=== PATIENT | female | born 1960 | race African-American/Black ===

== ENCOUNTER 2023-10-20 15:12 | Observation (INO) | payer OTHER, BC ==
[2023-10-20 15:26] VITALS: BMI 30.7
[2023-10-20] MEDS: ALBUTEROL SO4 2.5/IPRATROPIUM 0.5 INH SOL 3 ML VIAL.NEB. NEB ONE (16:00)
[2023-10-20] MEDS ORDERED: ALBUTEROL SO4 2.5/IPRATROPIUM 0.5 INH SOL 3 ML VIAL.NEB. NEB ONE (16:17)
[2023-10-20 16:57] LABS: BASO % 0.8 % (0-2.0); EOS % 8.5 % (0-4.5); HEMATOCRIT 35.7 % (32.4-45.2); HEMOGLOBIN 11.8 GM/dL (10.7-15.3); LYMPH % 29.2 % (8-40); MCHC 32.9 g/dl (32.0-36.0); MEAN CELL VOLUME 81.9 fl (80-96); MEAN PLT VOLUME 7.8 fl (7.5-11.1); MONO % 12.3 % (3.8-10.2); NEUT % 49.2 % (42.8-82.8); PLATELET COUNT 231 10^3/uL (134-434); RBC 4.36 M/mm3 (3.60-5.2); RDW 15.7 % (11.6-15.6); WHITE BLOOD COUNT 3.7 K/mm3 (4.0-10.0)
[2023-10-20 17:02] LABS: INR 1.1 (0.83-1.09); PROTHROMBIN TIME (PATIENT) 12.7 SEC (9.7-13.0)
[2023-10-20 17:05] LABS: ACTIVATED PTT 27.7 SECONDS (25.2-36.5)
[2023-10-20 17:12] LABS: POTASSIUM 3.9 mmol/L (3.5-5.1)
[2023-10-20 17:14] LABS: CALCIUM 9.2 mg/dL (8.5-10.1)
[2023-10-20 17:15] LABS: ALBUMIN 3.4 g/dl (3.4-5.0); MAGNESIUM 2.3 mg/dL (1.8-2.4)
[2023-10-20 17:18] LABS: CREATININE 0.8 mg/dL (0.55-1.3)
[2023-10-20 17:19] LABS: BILIRUBIN,TOTAL 0.5 mg/dL (0.2-1); TOT PROT 7.7 g/dl (6.4-8.2)
[2023-10-20 17:23] LABS: N-TERMINAL BNP 136.8 pg/ml (5-125)
[2023-10-20] MEDS ORDERED: methylPREDNISolone NA SUCC 125 MG/2 ML VIAL ONE (17:37)
[2023-10-20] MEDS: methylPREDNISolone NA SUCC 125 MG/2 ML VIAL IVPUSH ONE (17:43)
[2023-10-20 18:14] LABS: POTASSIUM 3.1 mmol/L (3.5-5.1)
[2023-10-20 18:15] LABS: BLOOD UREA NITROGEN 10.2 mg/dL (7-18); CALCIUM 8.9 mg/dL (8.5-10.1); MAGNESIUM 2.2 mg/dL (1.8-2.4)
[2023-10-20 18:19] LABS: CREATININE 0.7 mg/dL (0.55-1.3)
[2023-10-20] MEDS ORDERED: MAGNESIUM SULFATE IN WATER 2 GM/50 ML IVPB IVPB ONE (22:31)
[2023-10-20] MEDS: MAGNESIUM SULFATE IN WATER 2 GM/50 ML IVPB IVPB ONE (22:36)
[2023-10-20] MEDS ORDERED: guaiFENesin/CODEINE 10 ML UNIT-DOSE CUPS ONE (23:53)
[2023-10-21] MEDS: guaiFENesin 200 MG/10 ML 10 ML UNIT-DOSE CUPS PO ONE
[2023-10-21] MEDS ORDERED: ALBUTEROL SO4 HFA INHALER IH PRN (03:37)
[2023-10-21] MEDS: POTASSIUM CHLORIDE ORAL LIQUID 20 MEQ/15 ML PO ONE (04:09)
[2023-10-21] MEDS: ALBUTEROL SO4 2.5/IPRATROPIUM 0.5 INH SOL 3 ML VIAL.NEB. NEB SCH (05:27)
[2023-10-21 08:37] LABS: POTASSIUM 3.9 mmol/L (3.5-5.1)
[2023-10-21 08:38] LABS: BASO % 0.1 % (0-2.0); HEMATOCRIT 36.1 % (32.4-45.2); HEMOGLOBIN 12.2 GM/dL (10.7-15.3); LYMPH % 22.4 % (8-40); MCH 27.5 pg (25.7-33.7); MCHC 33.7 g/dl (32.0-36.0); MEAN CELL VOLUME 81.6 fl (80-96); MONO % 4.2 % (3.8-10.2); NEUT % 73.3 % (42.8-82.8); PLATELET COUNT 250 10^3/uL (134-434); RBC 4.43 M/mm3 (3.60-5.2); RDW 15.9 % (11.6-15.6); WHITE BLOOD COUNT 3.3 K/mm3 (4.0-10.0)
[2023-10-21 08:45] LABS: CALCIUM 9.3 mg/dL (8.5-10.1)
[2023-10-21 08:46] LABS: ALBUMIN 3.4 g/dl (3.4-5.0); BLOOD UREA NITROGEN 10.9 mg/dL (7-18); MAGNESIUM 2.4 mg/dL (1.8-2.4)
[2023-10-21 08:48] LABS: PHOSPHOROUS 2.8 mg/dL (2.5-4.9)
[2023-10-21 08:49] LABS: CREATININE 0.7 mg/dL (0.55-1.3)
[2023-10-21 08:50] LABS: BILIRUBIN,TOTAL 0.5 mg/dL (0.2-1); TOT PROT 7.7 g/dl (6.4-8.2)
[2023-10-21 08:51] VITALS: RESP 19; TEMP 98.7
[2023-10-21] MEDS: predniSONE 20 MG TABLET (UD) PO SCH (09:36)
[2023-10-21] MEDS: ASPIRIN COATED 81 MG TABLET.EC PO SCH (09:36)
[2023-10-21] MEDS: ACETAMINOPHEN 325 MG TABLET (FP) PO PRN (11:17)
[2023-10-21] MEDS: LOSARTAN POTASSIUM 50 MG TABLET PO SCH (11:18)
[2023-10-21] MEDS: NIFEdipine E.R. 30 MG TABLET PO SCH (13:45)
[2023-10-21 14:15] VITALS: BP 140/85; PULSE 79
[2023-10-21] MEDS ORDERED: ATORVASTATIN CA 10 MG TABLET (FP) PO SCH (22:00)
== END 2023-10-21 15:13 | disposition home or self-care (01) ==
LOC: JER 15:12 → UNDOADMOB 22:01 → JERBED 22:01 → INTOOBSV 22:18 → OBSVTOIN 22:18 → J5S 10-21 00:37 → JERBED 10-21 00:37 → J5S 10-21 07:53 → JERBED 10-21 07:53
PROVIDERS: ADMIT Internal Medicine
PROC: 3E0F7GC Introduction of Other Therapeutic Substance into Respiratory Tract, Via Natural or Artificial Opening (ICD-10-PCS; principal; 2023-10-21)
PROC: 3E033GC Introduction of Other Therapeutic Substance into Peripheral Vein, Percutaneous Approach (ICD-10-PCS; 2023-10-21)
DX: J45.909 Unspecified asthma, uncomplicated (principal); M19.90 Unspecified osteoarthritis, unspecified site; E87.5 Hyperkalemia; R74.01 Elevation of levels of liver transaminase levels; I10 Essential (primary) hypertension; E78.5 Hyperlipidemia, unspecified; Z86.711 Personal history of pulmonary embolism; Z88.0 Allergy status to penicillin
CPT/HCPCS: 0241U-QW; 36415; 71045-TC-FY; 80048; 80053; 83735; 83880; 84100; 84484; 85025; 85610; 85730; 93005; 93010; 93306-TC; 94150; 94640; 96365; 96375; 99285-25; G0378

== ENCOUNTER 2024-02-12 09:00 | Emergency (ER) | payer OTHER, BC ==
[2024-02-12 09:09] VITALS: TEMP 97.6; BMI 30.3
[2024-02-12 11:48] LABS: BASO % 0.8 % (0-2.0); EOS % 3.7 % (0-4.5); HEMATOCRIT 35.5 % (32.4-45.2); HEMOGLOBIN 11.9 GM/dL (10.7-15.3); LYMPH % 32.1 % (8-40); MCH 27.7 pg (25.7-33.7); MCHC 33.6 g/dl (32.0-36.0); MEAN CELL VOLUME 82.4 fl (80-96); MEAN PLT VOLUME 8.3 fl (7.5-11.1); MONO % 9.2 % (3.8-10.2); NEUT % 54.2 % (42.8-82.8); PLATELET COUNT 252 10^3/uL (134-434); RBC 4.31 M/mm3 (3.60-5.2); RDW 15.7 % (11.6-15.6); WHITE BLOOD COUNT 3.9 K/mm3 (4.0-10.0)
[2024-02-12 12:30] LABS: POTASSIUM 4.2 mmol/L (3.5-5.1)
[2024-02-12 12:32] LABS: CALCIUM 9.5 mg/dL (8.5-10.1)
[2024-02-12 12:33] LABS: ALBUMIN 3.5 g/dl (3.4-5.0); BLOOD UREA NITROGEN 16.4 mg/dL (7-18); MAGNESIUM 2.3 mg/dL (1.8-2.4)
[2024-02-12 12:36] LABS: CREATININE 0.8 mg/dL (0.55-1.3)
[2024-02-12 12:38] LABS: BILIRUBIN,TOTAL 0.9 mg/dL (0.2-1); TOT PROT 7.5 g/dl (6.4-8.2)
[2024-02-12 12:41] LABS: URINE APPEARANCE CLEAR; URINE BILIRUBIN NEGATIVE (NEGATIVE); URINE COLOR YELLOW; URINE GLUCOSE (UA) NEGATIVE (NEGATIVE); URINE KETONE NEGATIVE (NEGATIVE); URINE LEUK ESTERASE NEGATIVE (NEGATIVE); URINE NITRITE NEGATIVE (NEGATIVE); URINE PROTEIN NEGATIVE (NEGATIVE); URINE UROBILINOGEN 0.2 mg/dL (0.2-1.0)
[2024-02-12 13:02] LABS: HIV INTERPRETATION NEGATIVE (NEGATIVE)
[2024-02-12 13:13] VITALS: BP 158/81; PULSE 50; RESP 12
== END 2024-02-12 13:16 | disposition home or self-care (01) ==
LOC: JER 09:00
DX: R94.5 Abnormal results of liver function studies (principal); I10 Essential (primary) hypertension; H92.02 Otalgia, left ear
CPT/HCPCS: 36415; 80053; 81003; 83735; 84484; 85025; 86803; 87086; 87389; 93005; 93010; 99284-25

== ENCOUNTER 2024-05-29 10:26 | Emergency (ER) | payer OTHER ==
[2024-05-29 11:09] VITALS: RESP 18; TEMP 97.5; BMI 29.8
[2024-05-29 11:37] LABS: BASO % 0.6 % (0-2.0); EOS % 2.5 % (0-4.5); HEMATOCRIT 36.9 % (32.4-45.2); HEMOGLOBIN 12.5 GM/dL (10.7-15.3); LYMPH % 21.9 % (8-40); MCH 27.2 pg (25.7-33.7); MCHC 33.9 g/dl (32.0-36.0); MEAN CELL VOLUME 80.3 fl (80-96); MONO % 6.9 % (3.8-10.2); NEUT % 68.1 % (42.8-82.8); PLATELET COUNT 246 10^3/uL (134-434); WHITE BLOOD COUNT 4.1 K/mm3 (4.0-10.0)
[2024-05-29 11:56] LABS: CALCIUM 9.7 mg/dL (8.5-10.1)
[2024-05-29 11:57] LABS: ALBUMIN 3.7 g/dl (3.4-5.0); BLOOD UREA NITROGEN 9.6 mg/dL (7-18)
[2024-05-29 12:00] LABS: BILIRUBIN,TOTAL 0.8 mg/dL (0.2-1); CREATININE 0.7 mg/dL (0.55-1.3)
[2024-05-29 18:44] VITALS: BP 147/80; PULSE 76
[2024-05-29 18:57] LABS: HIV INTERPRETATION NEGATIVE (NEGATIVE)
== END 2024-05-29 19:08 | disposition home or self-care (01) ==
LOC: JER 10:26
DX: R07.89 Other chest pain (principal)
CPT/HCPCS: 36415; 71046-TC-FY; 71275-TC; 80053; 84484; 85025; 85379; 86803; 87389; 93005; 93010; 99285-25; Q9967